=== PATIENT | male | born 1950 | race Caucasian/White ===

== ENCOUNTER 2017-05-15 06:36 | Inpatient (IN) | payer OTHER ==
--- NOTE | 2017-05-14 10:45 | Pre-op HX & Phy Repo 2 SIG ---
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 The patient developed ulcerative colitis at age 26. At age 34 he underwent proctocolectomy with Jazmin ileostomy. In 2011 he underwent surgery to convert his malfunctioning ileostomy to a Owusu type of Kock pouch continent ileostomy. He has done very well since then, but in the past year has developed progressive bulging at the stoma. He is scheduled to undergo pouch endoscopy followed by repair of parastomal hernia. MEDICATIONS: Zyrtek ALLERGIES: None. OPERATIONS: In addition to the above, he underwent open reduction and internal fixation of a right leg fracture in 2000. REVIEW OF SYSTEMS: The patient has occasional bouts of gout, treated with colchicine and he has had asthma that increases with hay fever allergies. PHYSICAL EXAMINATION: GENERAL: [place] and will be examined upon arrival and dictated separately. IMPRESSION: 1. Parastomal hernia involving Owusu type of Kock pouch continent ileostomy 2. History of ulcerative colitis. 3. Asthma. 4. Status post multiple abdominal operations. 4.1. Proctocolectomy and Jazmin ileostomy in 1984. 4.2. Owusu continent ileostomy 2011. DISCUSSION: I have had a full discussion with the patient regarding the nature of pouch endoscopy, which does not require any anesthesia or sedation, followed by surgery to repair the parastomal hernia. I have discussed the indications, alternatives, options, and risks including bleeding, infection, recurrence, possible need for mesh, additional difficulties with the pouch or stoma that could occur, etc. I will have another discussion in person and will answer any questions when the patient arrives from out of state. Danny Nettles M.D. DR: FANNY JOB#: [id number] CC: ADOLFO
[~2017-05-15] VITALS: Ht 177.8 cm; Wt 65.8 kg
--- NOTE | 2017-05-15 07:35 | Pre-Procedure Note/Attestation ---
Pre-Procedure Note/Attestation Complete Prior to Procedure Planned Procedure: not applicable Procedure Narrative: Owusu Continent Ileostomy pouch endoscopy Indications for Procedure Pre-Operative Diagnosis: Parastomal hernia of Owusu continent ileostomy Attestation I attest that I discussed the nature of the procedure; its benefits; risks and complications; and alternatives (and the risks and benefits of such alternatives ), prior to the procedure, with the patient (or the patient's legal physician relations representative). I attest that, if there was a reasonable possibility of needing a blood transfusion, the patient (or the patient's legal physician relations representative) was given the [facility] standardized written summary, pursuant to the Edvin Zofia Blood Safety Act ([place] Health and Safety Code # 1645, as amended). I attest that I re-evaluated the patient just prior to the surgery and that there has been no change in the patient's H&P, except as documented below: none ARIELA DAWSON May 15, 2017 07:35
[2017-05-15 07:36] VITALS: BP 132/76
[2017-05-15] MEDS ORDERED: ZYRTEC10 MG ORAL (07:42)
[2017-05-15] MEDS ORDERED: NS Irrig 1000ml ONE (08:00)
[2017-05-15] MEDS ORDERED: metroNIDAZOLE 500mg 100 ML IVPB ONE (08:00)
[2017-05-15] MEDS ORDERED: Midazolam 2mg/2ml Inj ONE ×2 (08:00→09:00)
[2017-05-15] MEDS ORDERED: Dexamethasone 4mg/ml vial ONE ×2 (08:00→09:00)
[2017-05-15] MEDS ORDERED: Ampicillin/Sulbactam Sod 3 GM in NS 110 ML IVPB ONE (08:00)
[2017-05-15] MEDS ORDERED: Glycopyrrolate 0.2mg/ml 1ml Vial ONE ×2 (08:00→09:00)
[2017-05-15] MEDS ORDERED: Sterile Water Irrig 1000ml IRRIG ONE (08:00)
[2017-05-15] MEDS ORDERED: Zemuron 50mg/5ml Inj IV ONE ×2 (08:00→09:00)
[2017-05-15] MEDS ORDERED: LR 1000ml ONE ×2 (08:00→09:00)
--- NOTE | 2017-05-15 08:37 | Brief Operative Note ---
Immediate Post Operative Note Operative Note Pre-op Diagnosis: Parastomal hernia of Owusu continent ileostomy Procedure: Owusu pouch endoscopy Post-op Diagnosis: partially slipped nipple valve of Owusu continent ileostomy Post-op Diagnosis: same as pre-op plus - parastomal hernia + slipped valve Findings: consistent w/pre-op dx studies Surgeon: fadumo Anesthesia: other - none Specimen: none Complications: none Condition: stable Estimated Blood Loss: none Drains: other - 28 anne to pouch Implant(s) used?: ARIELA Ryan May 15, 2017 08:37
[2017-05-15] MEDS ORDERED: Heparin Sod 1000 units/ml 10ml IV ONE (08:45)
[2017-05-15] MEDS ORDERED: Lidocaine 1% Plain 30 ml INJ ONE (08:45)
[2017-05-15] MEDS ORDERED: Ketamine 500mg Inj ONE (09:00)
[2017-05-15] MEDS ORDERED: fentaNYL 250mcg/5ml ONE (09:00)
[2017-05-15] MEDS ORDERED: Neostigmine 1mg/ml 10ml Inj ONE (09:00)
[2017-05-15] MEDS ORDERED: Succinylcholine 20mg/ml 10ml vial ONE (09:00)
[2017-05-15] MEDS ORDERED: Zolpidem 5mg tab ORAL PRN (09:15)
[2017-05-15 09:18] VITALS: BP 119/79
--- NOTE | 2017-05-15 09:36 | General Progress Note ---
Progress Note Progress Note H&P dictated. Patient told me this morning that he has been having some difficulty intubating his Owusu Continent Ileostomy as well as episodes of incontinence of stool and gas Owsuu Pouch endoscopy performed and reveals a partially slipped valve (valve desussception), in addition to the parastomal hernia. In view of this additional finding, the patient will require laparotomy and revision of his Continent Ileostomy, as well as repair of the parastomal hernia. He will require today for preparation: dual lumen PICC line, bowel prep, IV hydration, pre-op IV antibiotics started tonight and SQ heparin in AM; and continuous drainage of the Owusu pouch with an indwelling catheter to gravity drainage (already inserted). Full discussion with patient and his re these additional findings and need for more extensive surgery. ARIELA DAWSON May 15, 2017 09:36
[2017-05-15 09:49] LABS: BASOPHILS % (AUTO) 0.5 % (0.0-2.0); EOSINOPHILS % (AUTO) 4.3 % (0.0-3.0); MEAN CORPUSCULAR HEMOGLOBIN 30.8 PG (27.0-31.0); MEAN CORPUSCULAR HGB CONC 33.5 G/DL (32.0-36.0); MEAN CORPUSCULAR VOLUME 92 FL (80-99); MEAN PLATELET VOLUME 7.3 FL (6.5-10.1); MONOCYTES % (AUTO) 7.1 % (1.0-10.0); PLATELET COUNT 180 K/UL (150-450); RED BLOOD COUNT 4.76 M/UL (4.70-6.10); RED CELL DISTRIBUTION WIDTH 11.4 % (11.6-14.8); WHITE BLOOD COUNT 10.1 K/UL (4.8-10.8)
[2017-05-15 10:00] LABS: PROTHROMBIN TIME 10.7 SEC (9.30-11.50)
[2017-05-15] MEDS ORDERED: Heparin 2000 units/Ns 1000ml IV ONE (10:00)
[2017-05-15 10:04] LABS: ALANINE AMINOTRANSFERASE 13 U/L (3-41); ALBUMIN/GLOBULIN RATIO 1.7 (1.0-2.7); ANION GAP 7 (5-15); ASPARTATE AMINO TRANSFERASE 16 U/L (5-40); CALCIUM 8.9 mg/dL (8.6-10.2); CARBON DIOXIDE 30 mEQ/L (20-30); CHLORIDE 102 mEQ/L (98-107); CREATININE 0.9 mg/dL (0.7-1.2); GLOMERULAR FILTRATION RATE > 60 mL/min (>60); HEMOLYSIS 5; POTASSIUM 4.6 mEQ/L (3.4-4.9); SODIUM 139 mEQ/L (135-145); TOTAL PROTEIN 5.8 g/dL (6.6-8.7)
[2017-05-15 10:17] LABS: BILIRUBIN,DIRECT 0.3 mg/dL (0.1-0.3)
[2017-05-15 11:28] LABS: APPEARANCE,URINE CLEAR; KETONES,URINE NEGATIVE (NEGATIVE); LEUKOCYTE ESTERASE ,URINE NEGATIVE (NEGATIVE); NITRITE,URINE NEGATIVE (NEGATIVE); PH,URINE 5 (4.5-8.0); PROTEIN,URINE NEGATIVE (NEGATIVE); UROBILINOGEN,URINE NORMAL MG/DL (0.0-1.0)
[2017-05-15] MEDS: Acetaminophen 500mg (ES) tab ORAL PRN (12:20)
[2017-05-15] MEDS: Dyna-Hex 2% Top Sol 8oz TOPIC SCH (12:21)
--- NOTE | 2017-05-15 12:30 | Pre-op HX & Phy Repo 2 SIG ---
DATE OF ADMISSION: 05/15/2017 HISTORY OF PRESENT ILLNESS: The [place] now [place]. Please see previously dictated history. At this time, he describes additional symptoms regarding his Owusu type of Kock pouch continent ileostomy. He has been having some difficulty with insertion of his drainage catheter and he has also had recent episodes of incontinence of stool and gas. This is all in addition to his parastomal hernia. PHYSICAL EXAMINATION: GENERAL: The patient is well developed and well nourished, in no distress. HEENT: Within normal limits. LUNGS: Clear. HEART: Regular rhythm. BREASTS: Without masses. ABDOMEN: Soft and flat with a long midline scar and the stoma of his Owusu continent ileostomy low in the right lower quadrant. There is a moderate size 4 x 5 cm bulge just cephalad to the stoma indicating the parastomal hernia. RECTAL: Status post proctectomy. GENITALIA: Testes and scrotum within normal limits. EXTREMITIES: Without edema or varicosities. Pulses 3+ femoral to pedal bilaterally. NEUROLOGIC: Physiologic. ADDITIONAL INFORMATION: The patient underwent Owusu continent ileostomy pouch endoscopy this morning without requiring any anesthesia or sedation. The endoscopy revealed that he has a partially slipped or dessuscepted nipple valve. The pouch itself is healthy without any inflammation and is normally distensible. In addition to the parastomal hernia, the new finding indicates that the patient requires more than just repair of parastomal hernia. He will require laparotomy with revision of his Owusu continent ileostomy slipped valve as well as repair of the hernia. He will require a day in the hospital to prepare for this with insertion of a dual lumen PICC line, bowel prep, continuous drainage of his Owusu pouch, intravenous hydration during the bowel prep, preop intravenous antibiotics, and subcutaneous heparin. IMPRESSION: 1. Malfunctioning Owusu continent ileostomy with partially slipped nipple valve and parastomal hernia. 2. History of ulcerative colitis. 3. Status post multiple abdominal operations. 3.1. Proctocolectomy and Jazmin ileostomy in 1984. 3.2. Creation of Owusu continent ileostomy in 2011. DISCUSSION: I have had a full discussion with the patient and his regarding these additional findings, the need for formal laparotomy as described above. I have discussed the nature of the surgery, indications, alternatives, options, and risks including bleeding, infection, injury to adjacent structures or organs, possible need for gastrostomy if there is a prolonged mobilization of bowel or a more substantial revision, deep vein thrombosis despite prophylaxis, recurrent or new issues with the pouch or stoma or recurrence of the hernia with or without use of mesh. I have discussed with the patient the option of revising the existing valve of his pouch or creating a new valve and stoma with possible relocation of the stoma to the left lower quadrant. All questions have been answered. The patient understands and agrees to proceed. Danny Nettles M.D. DR: FANNY JOB#: [id number] CC: ADOLFO
[2017-05-15] MEDS: Neomycin Sulfate 500mg Tab ORAL SCH ×3 (12:41→21:46)
--- NOTE | 2017-05-15 12:51 | Diagnostic Imaging Report ---
Indication: oysterman venous access Findings: After the indications, procedure, risks, complications, and alternatives of the procedure were explained, written informed consent was obtained. The left upper extremity was prepped with alcohol. All elements of maximal sterile barrier technique were followed including usage of a cap, mask, sterile gown, sterile gloves, hand hygiene and a large sterile sheet. Sonographic evaluation of the upper extremity was performed demonstrating a patent and compressible basilic vein. Access was obtained under real-time ultrasound guidance and digital image was saved and archived. An .018 wire was introduced. Needle exchanged for a 5 [place] peel-away sheath. Measurements were obtained. A 5 [place] dual-lumen Power PICC line catheter was cut to 45 cm and introduced over the wire. Peel-away sheath and wire were removed.Catheter was secured to the skin using 2-0 Prolene suture. Both ports aspirate and flush easily. Fluoroscopic Images show distal tip in the superior vena cava. Total fluoroscopic time 0.3 minutes. Impression: Successful placement of an upper extremity PICC line catheter
[2017-05-15 12:55] VITALS: BP 106/65
[2017-05-15 16:00] VITALS: BP 105/63
--- NOTE | 2017-05-15 17:30 | Procedure Note ---
DATE OF PROCEDURE: 05/15/2017 ENDOSCOPY PROCEDURE REPORT TYPE OF ENDOSCOPY: Owusu continent ileostomy pouch endoscopy. PRE-ENDOSCOPY DIAGNOSES: 1. Malfunctioning Owusu continent ileostomy with difficulty with intubation and incontinence as well as parastomal hernia. 2. History of ulcerative colitis. 3. Status post multiple abdominal operations. 3.1. Proctocolectomy and Jazmin ileostomy in 1984. 3.2. Owusu continent ileostomy in 2011. POST-ENDOSCOPY DIAGNOSIS: 1. Malfunctioning Owusu continent ileostomy with difficulty with intubation and incontinence as well as parastomal hernia. 2. History of ulcerative colitis. 3. Status post multiple abdominal operations. 3.1. Proctocolectomy and Jazmin ileostomy in 1984. 3.2. Owusu continent ileostomy in 2011. ENDOSCOPY PERFORMED: Owusu pouch endoscopy. ENDOSCOPIST: Danny Nettles M.D. ANESTHESIA: None. SEDATION: None. FINDINGS: A partially slipped nipple valve of the Owusu pouch with normal pouch mucosa showing no signs of inflammation, and there are angulations of the access segment. There is also a parastomal hernia of moderate size. DESCRIPTION OF PROCEDURE: The patient was positioned supine in the GI lab without any anesthesia or sedation given or required. Using a GIF-P140 endoscope, I entered the stoma, but there was severe angulation at approximately 8 cm in depth. I removed the scope and inserted a 28-[place] Sarmiento catheter into the pouch to decompress it without any significant difficulty. I had continuing difficulties with the endoscope, but finally was able to enter the pouch. The pouch was distensible and the mucosa completely normal. Retroflexed views revealed that the nipple valve was short and stubby instead of well formed and 5 cm in length. This explains the incontinence and the angulations of the access segment explaining difficulty with intubation. Withdrawal views confirmed the above findings. The distance from the stoma orifice to the tip of the valve was elongated at approximately 10 to 11 cm instead of what would be anticipated as 7 to 8 cm. The patient tolerated the endoscopy well. I have discussed with the patient the additional findings that will require more extensive surgery than simply repair of his parastomal hernia including laparotomy and revision of his Owusu pouch slipped valve. The patient will be admitted now and prepared for surgery tomorrow. Don Regina Nettles DR: LIBERTY JOB#: [id number] CC: ADOLFO
[2017-05-15] MEDS: D5 1/2NS w/KCl 20mEq 1,000 ML IV SCH (18:59)
[2017-05-15 19:58] VITALS: BP 120/75
[2017-05-16] VITALS (10 sets, daily range): BP systolic 82–127; BP diastolic 45–80
[2017-05-16] MEDS: metroNIDAZOLE 500mg 100 ML IV SCH ×5 (00:23→23:40)
[2017-05-16] MEDS: Ampicillin/Sulbactam Sod 3 GM in NS 110 ML IV SCH ×5 (00:23→23:40)
[2017-05-16] MEDS: D5 1/2NS w/KCl 20mEq 1,000 ML IV SCH ×2 (05:29→14:00)
[2017-05-16] MEDS ORDERED: Heparin 5000 units/ml inj SUBQ ONE (07:00)
--- NOTE | 2017-05-16 07:58 | Pre-Procedure Note/Attestation ---
Pre-Procedure Note/Attestation Complete Prior to Procedure Planned Procedure: not applicable Procedure Narrative: laparotomy revision Owusu Continent Ileostomy, repair parastomal hernia, possible gastrostomy Indications for Procedure Pre-Operative Diagnosis: Malfunctioning Owusu Continent Ileostomy with slipped valve and parastomal hernia Attestation I attest that I discussed the nature of the procedure; its benefits; risks and complications; and alternatives (and the risks and benefits of such alternatives ), prior to the procedure, with the patient (or the patient's legal development representative). I attest that, if there was a reasonable possibility of needing a blood transfusion, the patient (or the patient's legal development representative) was given the [place] [facility] standardized written summary, pursuant to the Edvin Zofia Blood Safety Act ([place] Health and Safety Code # 1645, as amended). I attest that I re-evaluated the patient just prior to the surgery and that there has been no change in the patient's H&P, except as documented below:none ARIELA DAWSON May 16, 2017 07:57
[2017-05-16] MEDS ORDERED: Lidocaine 1% MPF 10mg/ml 5ml ONE (08:00)
[2017-05-16] MEDS ORDERED: Bacitracin 50000 Units Vial ONE (08:10)
[2017-05-16] MEDS: Dyna-Hex 2% Top Sol 8oz TOPIC SCH (09:00)
[2017-05-16] MEDS ORDERED: NS Irrig 1000ml IRRIG ONE (09:30)
[2017-05-16] MEDS ORDERED: LR 1000ml 1,000 ML IVLG SCH (09:41)
[2017-05-16] MEDS ORDERED: Meperidine 25mg/0.5ml Inj (FOR RIGORS ONLY) IV PRN (09:45)
[2017-05-16] MEDS ORDERED: Atropine Inj 1mg/10ml Syr IV PRN (09:45)
[2017-05-16] MEDS ORDERED: fentaNYL 100 mcg/2 mL IV PRN (09:45)
[2017-05-16] MEDS ORDERED: Midazolam 2mg/2ml Inj IVP PRN (09:45)
[2017-05-16] MEDS ORDERED: Norco 5mg/325mg tab ORAL PRN (09:45)
[2017-05-16] MEDS ORDERED: Norco 7.5mg/325mg tab ORAL PRN (09:45)
[2017-05-16] MEDS ORDERED: Ketorolac 60mg Inj IV PRN (09:45)
[2017-05-16] MEDS ORDERED: oxyCODONE HCL/Acetaminophen 5/325mg ORAL PRN (09:45)
[2017-05-16] MEDS ORDERED: Hydromorphone 0.5mg/0.5ml inj IVP PRN (09:45)
[2017-05-16] MEDS ORDERED: LORazepam Inj 2mg/ml 1ml IV PRN (09:45)
[2017-05-16] MEDS ORDERED: Ketorolac 30mg Inj IV PRN (09:45)
[2017-05-16] MEDS ORDERED: DiphenhydrAMINE 50mg/ml Inj IVP PRN ×2 (09:45→14:00)
[2017-05-16] MEDS ORDERED: Metoclopramide 10mg/2ml Inj IVP PRN (09:45)
--- NOTE | 2017-05-16 09:45 | Anethesia Preoperative Eval ---
Anesthesia Pre-op PMH/ROS General Date of Evaluation: May 16, 2017 Time of Evaluation: 08:51 Anesthesiologist: Juan J ASA Score: ASA 3 Mallampati Score Class I : Soft palate, uvula, fauces, pillars visible Class II: Soft palate, uvula, fauces visible Class III: Soft palate, base of uvula visible Class IV: Only hard plate visible Mallampati Classification: Class II Surgeon: Yoon Diagnosis: Malfunctioning Barnetts Pouch Surgical Procedure: Revision Malfunctioning Pouch Anesthesia History: none Family History: no anesthesia problems Allergies: Coded Allergies: No Known Allergies (Unverified , 04/08/12) Medications: see eMAR Past Medical History Pulmonary: Reports: asthma Gastrointestinal/Genitourinary: Reports: other - Colitis, Malfunctioning Barnetts Pouch PSxH Narrative: Barnetts Pouch 1985 Anesthesia Pre-op Phys. Exam Physician Exam Last Vital Signs Date Time Temp Pulse Resp B/P Pulse Ox O2 Delivery O2 Flow Rate FiO2 05/16/17 04:49 97.7 57 20 126/74 99 Room Air Constitutional: NAD Neurologic: CN 2-12 intact Cardiovascular: RRR Respiratory: CTA Gastrointestinal: S/NT/ND Airway Exam Mallampati Score: Class II MO: full ROM: full Teeth: intact Anesthesia Pre-op A/P Labs Hematology Test 05/15/17 09:45 White Blood Count 10.1 K/UL (4.8-10.8) Red Blood Count 4.76 M/UL (4.70-6.10) Hemoglobin 14.7 G/DL (14.2-18.0) Hematocrit 43.8 % (42.0-52.0) Mean Corpuscular Volume 92 FL (80-99) Mean Corpuscular Hemoglobin 30.8 PG (27.0-31.0) Mean Corpuscular Hemoglobin Concent 33.5 G/DL (32.0-36.0) Red Cell Distribution Width 11.4 % (11.6-14.8) L Platelet Count 180 K/UL (150-450) Mean Platelet Volume 7.3 FL (6.5-10.1) Neutrophils (%) (Auto) 74.0 % (45.0-75.0) Lymphocytes (%) (Auto) 14.0 % (20.0-45.0) L Monocytes (%) (Auto) 7.1 % (1.0-10.0) Eosinophils (%) (Auto) 4.3 % (0.0-3.0) H Basophils (%) (Auto) 0.5 % (0.0-2.0) Coagulation Test 05/15/17 09:45 Prothrombin Time 10.7 SEC (9.30-11.50) Prothromb Time International Ratio 1.0 (0.9-1.1) Activated Partial Thromboplast Time 30 SEC (23-33) Chemistry Test 05/15/17 09:45 Sodium Level 139 mEQ/L (135-145) Potassium Level 4.6 mEQ/L (3.4-4.9) Chloride Level 102 mEQ/L (98-107) Carbon Dioxide Level 30 mEQ/L (20-30) Anion Gap 7 (5-15) Blood Urea Nitrogen 9 mg/dL (7-23) Creatinine 0.9 mg/dL (0.7-1.2) Estimat Glomerular Filtration Rate > 60 mL/min (>60) Glucose Level 91 mg/dL (74-106) Calcium Level 8.9 mg/dL (8.6-10.2) Total Bilirubin 1.9 mg/dL (0.0-1.2) H Direct Bilirubin 0.3 mg/dL (0.1-0.3) Aspartate Amino Transf (AST/SGOT) 16 U/L (5-40) Alanine Aminotransferase (ALT/SGPT) 13 U/L (3-41) Alkaline Phosphatase 78 U/L (40-129) Total Protein 5.8 g/dL (6.6-8.7) L Albumin 3.7 g/dL (3.5-5.2) Globulin 2.1 g/dL Albumin/Globulin Ratio 1.7 (1.0-2.7) Risk Assessment & Plan Assessment: ASA 3 Plan: GA, BIS, Glidescope Status Change Before Surgery: No Pre-Antibiotics Drug: On Floor Magno Arita MD May 16, 2017 09:45
--- NOTE | 2017-05-16 09:46 | Immediate Post-Op Evaluation ---
Immediate Post-Op Evalulation Immediate Post-Op Evalulation Procedure: Revision Malfunctioning Pouch Date of Evaluation: May 16, 2017 Time of Evaluation: 14:10 IV Fluids: 1200 LR Blood Products: 0 Estimated Blood Loss: 75 Urinary Output: 200 Blood Pressure Systolic: 91 Blood Pressure Diastolic: 54 Pulse Rate: 72 Respiratory Rate: 16 O2 Sat by Pulse Oximetry: 98 Temperature (Fahrenheit): 97.5 Pain Score (1-10): 2 Nausea: No Vomiting: No Complications 0 Patient Status: awake, reacts, patent, extubated, none Hydration Status: adequate Dru mg Flagyl, 3.375 Grams Zosyn Given Within 1 Hr of Incision: Yes Time Given: 12:30 Magno Arita MD May 16, 2017 09:46
--- NOTE | 2017-05-16 09:51 | 48 Hour Post Anesthesia Eval ---
Post Anesthesia Evaluation Procedure: Revision Malfunctioning Pouch Date of Evaluation: May 16, 2017 Time of Evaluation: 16:32 Blood Pressure Systolic: 112 0: 76 Pulse Rate: 74 Respiratory Rate: 18 Temperature (Fahrenheit): 98.2 O2 Sat by Pulse Oximetry: 99 Airway: patent Nausea: No Vomiting: No Pain Intensity: 2 Hydration Status: adequate Cardiopulmonary Status: Stable Mental Status/LOC: patient returned to baseline Follow-up Care/Observations: 0 Post-Anesthesia Complications: 0 Follow-up care needed: N/A Magno Arita MD May 16, 2017 09:51
[2017-05-16] MEDS ORDERED: Betadine 4oz Bottle TOPIC ONE (10:00)
[2017-05-16] MEDS ORDERED: Acetaminophen (Non formulary) 100 ML IV ONE ×2 (10:45)
[2017-05-16] MEDS ORDERED: Acetaminophen (Non formulary) 1,000 MG/100 ML ML IV ONE (11:00)
[2017-05-16] MEDS ORDERED: Ampicillin/Sulbactam Sod 3 GM in NS 110 ML IV SCH (12:00)
[2017-05-16] MEDS ORDERED: metroNIDAZOLE 500mg 100 ML IV SCH (12:00)
[2017-05-16] MEDS ORDERED: Morphine Sulfate 2mg/ml Inj IVP PRN (14:00)
[2017-05-16] MEDS ORDERED: LORazepam 1mg tab SL PRN ×2 (14:00)
[2017-05-16] MEDS ORDERED: Morphine Sulfate 4mg/ml Inj SUBQ PRN (14:00)
[2017-05-16] MEDS ORDERED: Rate Change PCA 1 Each MISC PRN (14:00)
[2017-05-16] MEDS ORDERED: Naloxone 0.4mg/ml Inj IVP PRN (14:00)
[2017-05-16] MEDS ORDERED: PCA Education Pamphlet MISC ONE (14:00)
--- NOTE | 2017-05-16 14:01 | Brief Operative Note ---
Immediate Post Operative Note Operative Note Pre-op Diagnosis: Malfunctioning Owusu Continent Ileostomy with slipped valve and parastomal hernia Procedure: Laparotomy with revision of Owusu pouch and relocation of stoma to LLQ, repair parastomal hernia RLQ, gastrostomy Post-op Diagnosis: same Post-op Diagnosis: same as pre-op Findings: consistent w/pre-op dx studies Surgeon: fadumo [employer] Consultant: reyna Anesthesiologist: donis Anesthesia: general Specimen: yes - Owusu pouch stoma, bowel trimmings Complications: none Condition: stable Fluids: see anesthesia record Estimated Blood Loss: volume - 75cc Drains: other - 28 pouch, 18 gastrostomy Implant(s) used?: No ARIELA DAWSON May 16, 2017 14:01
[2017-05-16] MEDS: PCA Morphine 1mg/ml 30 ML IV PRN ×2 (14:23→22:38)
[2017-05-16] MEDS: D5 1/4NS w/KCl 20mEq 1,000 ML IV SCH (16:24)
[2017-05-16] MEDS: PCA shift volume MISC SCH (19:00)
[2017-05-17] VITALS: BP 102/57
[2017-05-17] MEDS: D5 1/4NS w/KCl 20mEq 1,000 ML IV SCH (01:00)
--- NOTE | 2017-05-17 03:47 | Operative Note - Dictated ---
DATE OF OPERATION: 05/16/2017 SURGEON: Danny Nettles M.D. PAPER MACHINE BACKTENDER SURGEON: Prosper Ambriz M.D. ANESTHESIOLOGIST: Magno Arita M.D. TYPE OF ANESTHESIA: General endotracheal. PREOPERATIVE DIAGNOSES: 1. 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 2. History of ulcerative colitis. 3. Status post multiple abdominal operations. 3.1. Proctocolectomy and Jazmin ileostomy in 1984. 3.2. Creation of Owusu continent ileostomy in 2011. POSTOPERATIVE DIAGNOSES: 1. 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 2. History of ulcerative colitis. 3. Status post multiple abdominal operations. 3.1. Proctocolectomy and Jazmin ileostomy in 1984. 3.2. Creation of Owusu continent ileostomy in 2011. OPERATION PERFORMED: Laparotomy with complex revision of Owusu continent ileostomy including creation of new valve and relocation of stoma to the left lower quadrant; repair of right lower quadrant hernia; catheter gastrostomy. DESCRIPTION OF PROCEDURE: The patient was taken to the operating room and under general endotracheal anesthesia with sequential compression device stockings and Sarmiento catheter in place, having received preoperative intravenous antibiotics and subcutaneous heparin, the patient was prepped and draped in the usual fashion. Previous midline incision was reopened from umbilicus to pubis and ultimately extended into the epigastrium. Initially, the stoma in the right lower quadrant was sealed with a Tegaderm. The patient had diffuse adhesions in the abdominal cavity and the pouch itself was adherent to the bladder. The bowel loops and the pouch were completely mobilized out of the pelvis protecting bladder and ureters. The access segment was seen to be obviously redundant. I tried to insert a 28-[place] Sarmiento catheter through the stoma into the pouch, but it would not enter the pouch. I took down the stoma with a transversely oriented elliptical incision bringing it into the abdominal cavity. Even while placing the access segment on stretch, the catheter would not enter. Between stay sutures of 3-0 silk, I created a pouch enterotomy with cautery. It was clear that the nipple valve had dessuscepted and I was finally able to locate it, grasped with Yisel clamps and reformed it measuring 6.0 cm. There was still difficulty inserting the catheter because there was a valve tip stenosis. I divided this with a MARITO 55 stapling device and then the catheter entered readily. I placed rows of evelyn away from the mesentery on the valve segment using the PI 55 stapling device with 4.8 mm evelyn. After proper fixation as I tried to manipulate the catheter in, it went straight in. Now, I closed the pouch enterotomy with continuous full-thickness 2-0 chromic locking suture and then distended the pouch with 400 mL of saline. I removed the catheter and the pouch was continent, but the catheter could not be reintroduced. I took out the chromic and reopened the enterotomy and saw that the nipple valve had already partially dessuscepted despite attempts at stabilization. It was clear that this could no longer be utilized. The mesentery to the access segment and stoma was divided between clamps ligating with 2-0 and 3-0 silk using the linear stapler 35 with green cartridge and stapled across the access segment flush with the pouch and excised the old stoma and access segment. There was good hemostasis along the staple line. I then dissected free more of the afferent bowel and it was clear that a new valve and stoma could be created with an end-to-side anastomosis to the pouch, but the blood supply would point to the left lower quadrant and I would have to relocate the stoma. I divided the bowel proximally with the automatic pursestring device, distally with the linear stapler 30. Now, using a CEEA 25, an end-to-side anastomosis to the apex of the pouch was created and 2-0 silk sutures placed between access segment and pouch. The peritoneum was stripped on each side of the valve segment mesentery and the valve segment had been measured 12 cm and then the serosa scarified with cautery. With gradual intussusception, a 6.0 cm long nipple valve was created. Three rows of evelyn were applied using the PI 55 stapling device with 4.8 mm evelyn, avoiding the mesentery. A fourth application of the stapling device was used to staple the valve to the anterior pouch wall. Then, additional 3-0 silk sutures were taken between the access segment and the pouch. The abdominal wall thickness measured at 3 cm. The appropriate length access segment was measured and marked and the bowel divided proximally with the linear stapler 30 and distally left open to become the new stoma. The mesentery was divided ligating with 3-0 silk. Now the two stapled ends of bowel were brought [id number], and using the MARITO-55, a [id number] functional end-to-end stapled anastomosis was created with good hemostasis along the staple line and the enterotomy closed with the linear stapler 60, green cartridge. A 3-0 silk placed at the apex and the small mesenteric defect closed with 3-0 silk suture. Now the pouch enterotomy was closed with continuous full-thickness 2-0 chromic locking suture followed by imbricating 3-0 silk sutures. The 28-[place] Sarmiento readily went through into the pouch and the afferent bowel was manually occluded. The pouch was distended with 400 mL of saline and there was no sign of extravasation. The catheter was removed and the pouch was completely continent. The catheter was reintroduced and the pouch decompressed. At the prior stoma site in the right lower quadrant, the incision was extended to visualize the fascial defect. The fascia was closed with inverted interrupted #0 Prolene [id number] sutures. Betadine-soaked sponge had been placed in the stoma and antibiotic-soaked sponges had been used to protect the abdominal wall and the incision. Now at an appropriate location low in the left lower quadrant, a 2.5 cm narrow ellipse of skin was excised in transverse orientation, and with a cruciate incision in the fascia, a two fingerbreadth abdominal wall hiatus was created. The posterior pouch was sutured to the peritoneum with interrupted 3-0 Vicryl and then the access segment and the stoma brought through the abdominal wall. The redundant access segment was excised and the stoma primarily matured with continuous 2-0 chromic locking sutures starting at the 3 and 9 o'clock positions. A very satisfactory stoma was achieved. The 28-[place] Sarmiento catheter was placed into the pouch and marked at the level of the stoma with 3-0 silk and then sutured to the skin with two sutures of 2-0 silk. It was flushed and connected to a gravity drainage bag. The pelvis was inspected and hemostasis was secure. The pouch lay in the pelvis with bowel loops replaced anatomically. In view of all the dissection and prolonged operation, I felt that decompression with a catheter gastrostomy was indicated. Prior gastrostomy site was taken down and through a stab incision in the left upper quadrant, an 18-[place] Sarmiento catheter was brought through the abdominal wall and placed into the greater curve, anterior wall, body of the stomach between two concentric 2-0 chromic pursestring sutures with the balloon inflated and positioned in the fundus and the stomach then sutured to the anterior abdominal wall with multiple interrupted 3-0 silk sutures. The catheter was sutured to the skin with a 2-0 silk skin suture and then it was flushed and connected to a gravity drainage bag. Gloves were changed at appropriate intervals throughout the procedure. After ascertaining that hemostasis was secure, the incision was closed in one layer with continuous #1 Prolene inverting the knots. Subcutaneous tissues again irrigated with antibiotic solution at the primary incision and the right lower quadrant incision. both incisions were closed with evelyn. Dry sterile dressings were applied. Final sponge and needle counts were correct. The patient tolerated the procedure well and left the operating room in good condition. Danny Nettles M.D. DR: MICHEAL JOB#: [id number] CC: ADOLFO
[2017-05-17] MEDS: Ampicillin/Sulbactam Sod 3 GM in NS 110 ML IV SCH ×4 (05:02→23:21)
[2017-05-17] MEDS: metroNIDAZOLE 500mg 100 ML IV SCH ×4 (05:02→23:21)
[2017-05-17 05:59] VITALS: BP_SYST 95; BP_SYST 98; BP_DIAS 61
[2017-05-17 06:44] LABS: ANION GAP 8 (5-15); CALCIUM 8.4 mg/dL (8.6-10.2); CARBON DIOXIDE 28 mEQ/L (20-30); CHLORIDE 105 mEQ/L (98-107); GLOMERULAR FILTRATION RATE > 60 mL/min (>60); HEMOLYSIS 3; POTASSIUM 5.2 mEQ/L (3.4-4.9); SODIUM 141 mEQ/L (135-145)
[2017-05-17 06:59] LABS: BASOPHILS % (AUTO) 0.2 % (0.0-2.0); EOSINOPHILS % (AUTO) 0.5 % (0.0-3.0); LYMPHOCYTES % (AUTO) 7.5 % (20.0-45.0); MEAN CORPUSCULAR HEMOGLOBIN 32.4 PG (27.0-31.0); MEAN CORPUSCULAR VOLUME 93 FL (80-99); MEAN PLATELET VOLUME 7.7 FL (6.5-10.1); MONOCYTES % (AUTO) 8.1 % (1.0-10.0); NEUTROPHILS % (AUTO) 83.8 % (45.0-75.0); PLATELET COUNT 168 K/UL (150-450); RED BLOOD COUNT 4.17 M/UL (4.70-6.10); RED CELL DISTRIBUTION WIDTH 11.4 % (11.6-14.8); WHITE BLOOD COUNT 13.3 K/UL (4.8-10.8)
[2017-05-17] MEDS: PCA shift volume MISC SCH ×2 (07:05→19:13)
[2017-05-17 08:00] VITALS: BP 98/52
[2017-05-17] MEDS: PCA Morphine 1mg/ml 30 ML IV PRN (08:47)
[2017-05-17] MEDS: Dyna-Hex 2% Top Sol 8oz TOPIC SCH (09:26)
--- NOTE | 2017-05-17 09:53 | General Progress Note ---
Progress Note Progress Note AVSS Comfortable with MS-DOCUMENT CLERK. Chest clear, Cor reg rhythm, Abdomen mildly distended, soft, incisions clean, stoma pink in LLQ Urine 500cc/12 hrs overnite Gastrostomy 40 bilious BCIR ileo 120 serosang WBC 13,300 Hgb 13.5 K 5.2 BUN 13 Cr 1.0 Imp. Stable with ileus Plan: Mobilize change IV fluids - no KCL f/u labs with TP/alb (admission albumin low normal - may benefit from TPN ARIELA DAWSON May 17, 2017 09:53
[2017-05-17] MEDS: D5 1/4NS 1000ml 1,000 ML IV SCH ×2 (09:59→20:42)
[2017-05-17] MEDS ORDERED: Naloxone 0.4mg/ml Inj IVP PRN (10:00)
[2017-05-17] MEDS ORDERED: PCA Morphine 1mg/ml 30 ML IV PRN (10:00)
[2017-05-17] MEDS ORDERED: Rate Change PCA 1 Each MISC PRN (10:00)
[2017-05-17] MEDS ORDERED: Morphine Sulfate 4mg/ml Inj SUBQ PRN (10:00)
[2017-05-17] MEDS ORDERED: DiphenhydrAMINE 50mg/ml Inj IVP PRN (10:00)
[2017-05-17] MEDS ORDERED: Morphine Sulfate 2mg/ml Inj IVP PRN (10:00)
[2017-05-17 12:37] VITALS: BP 103/55
[2017-05-17] MEDS: Acetaminophen 650mg/20.3ml GT PRN ×2 (14:10→18:03)
[2017-05-17 16:00] VITALS: BP 105/58
[2017-05-17] MEDS ORDERED: Tubing IV Secondary IV ONE (17:25)
[2017-05-17] MEDS ORDERED: NS 550ML IV ONE (17:25)
[2017-05-17] MEDS: Metoclopramide 10mg/2ml Inj IVP PRN ×2 (18:02→23:44)
[2017-05-17 20:00] VITALS: BP 116/68
[2017-05-18] VITALS (7 sets, daily range): BP systolic 103–142; BP diastolic 65–85
[2017-05-18] MEDS: Acetaminophen 650mg/20.3ml GT PRN (03:06)
[2017-05-18] MEDS: Metoclopramide 10mg/2ml Inj IVP PRN (05:55)
[2017-05-18] MEDS: metroNIDAZOLE 500mg 100 ML IV SCH ×3 (05:55→18:18)
[2017-05-18] MEDS: Ampicillin/Sulbactam Sod 3 GM in NS 110 ML IV SCH ×3 (05:56→18:19)
[2017-05-18 06:20] LABS: BASOPHILS % (AUTO) 0.4 % (0.0-2.0); EOSINOPHILS % (AUTO) 2.8 % (0.0-3.0); LYMPHOCYTES % (AUTO) 11.3 % (20.0-45.0); MEAN CORPUSCULAR HEMOGLOBIN 31.8 PG (27.0-31.0); MEAN CORPUSCULAR HGB CONC 34.6 G/DL (32.0-36.0); MEAN CORPUSCULAR VOLUME 92 FL (80-99); MEAN PLATELET VOLUME 7.6 FL (6.5-10.1); MONOCYTES % (AUTO) 8.4 % (1.0-10.0); NEUTROPHILS % (AUTO) 77.1 % (45.0-75.0); PLATELET COUNT 144 K/UL (150-450); RED CELL DISTRIBUTION WIDTH 11.3 % (11.6-14.8); WHITE BLOOD COUNT 9.7 K/UL (4.8-10.8)
[2017-05-18] MEDS: D5 1/4NS 1000ml 1,000 ML IV SCH (06:26)
[2017-05-18 06:35] LABS: ALANINE AMINOTRANSFERASE 11 U/L (3-41); ALBUMIN/GLOBULIN RATIO 1.5 (1.0-2.7); ANION GAP 6 (5-15); ASPARTATE AMINO TRANSFERASE 19 U/L (5-40); CARBON DIOXIDE 29 mEQ/L (20-30); CHLORIDE 101 mEQ/L (98-107); CREATININE 0.8 mg/dL (0.7-1.2); GLOMERULAR FILTRATION RATE > 60 mL/min (>60); HEMOLYSIS 5; POTASSIUM 3.5 mEQ/L (3.4-4.9); SODIUM 136 mEQ/L (135-145); TOTAL PROTEIN 4.6 g/dL (6.6-8.7)
[2017-05-18 06:48] LABS: BILIRUBIN,DIRECT 0.3 mg/dL (0.1-0.3)
[2017-05-18] MEDS: PCA shift volume MISC SCH ×2 (07:14→19:20)
[2017-05-18] MEDS: Dyna-Hex 2% Top Sol 8oz TOPIC SCH (08:46)
[2017-05-18] MEDS ORDERED: Naloxone 0.4mg/ml Inj IVP PRN (08:58)
[2017-05-18] MEDS ORDERED: Rate Change PCA 1 Each MISC PRN (09:00)
[2017-05-18] MEDS: Metoclopramide 10mg/2ml Inj IVP SCH ×3 (09:07→21:33)
--- NOTE | 2017-05-18 09:15 | General Progress Note ---
Progress Note Progress Note AVSS. Having nausea despite Zofran and Reglan prn. Also headache, but better since basal infusion of NURSE HEALTHCARE MANAGER stopped Abdomen distended but soft, incisions clean, stoma pink Urine 850/24 hours, but 600 overnight and clear dilute urine now Gastrostomy 165 BCIR ileo 15 enteric WBC down 9700 Hgb 12.4 K 3.5 Albumin 2.8 Imp. Ileus and persistent nausea Malnutrition Plan: NPO Start TPN Give Reglan q6h instead of PRN, continue prn ARIELA Hart May 18, 2017 09:15
[2017-05-18] MEDS ORDERED: Morphine Sulfate 4mg/ml Inj SUBQ PRN (10:00)
[2017-05-18] MEDS ORDERED: Morphine Sulfate 2mg/ml Inj IVP PRN (10:00)
[2017-05-18] MEDS ORDERED: PCA Morphine 1mg/ml 30 ML IV PRN (10:00)
[2017-05-18] MEDS ORDERED: DiphenhydrAMINE 50mg/ml Inj IVP PRN (10:00)
[2017-05-18] MEDS ORDERED: Dextrose 10% 1,000 ML IV PRN (10:30)
[2017-05-18] MEDS ORDERED: D5 1/4NS w/KCl 20mEq 1,000 ML IV SCH ×2 (11:00→21:00)
[2017-05-18] MEDS: Phytonadione 10 mg/mL 1ml amp SUBQ SCH (11:28)
[2017-05-18] MEDS: Acetaminophen 500mg (ES) tab ORAL PRN (20:38)
[2017-05-18] MEDS ORDERED: Fat Emulsion Iv 20% 250 ML IV SCH (21:00)
[2017-05-18] MEDS: Fat Emulsion Iv 20% 240 ML in Tpn 1,680 ML IV SCH (21:46)
[2017-05-19] VITALS (7 sets, daily range): BP systolic 119–142; BP diastolic 76–82
[2017-05-19] MEDS: metroNIDAZOLE 500mg 100 ML IV SCH ×4 (00:10→18:31)
[2017-05-19] MEDS: Ampicillin/Sulbactam Sod 3 GM in NS 110 ML IV SCH ×4 (00:10→18:31)
[2017-05-19] MEDS: NovoLOG Insulin Flexpen SUBQ SCH ×4 (00:18→18:39)
[2017-05-19] MEDS: Metoclopramide 10mg/2ml Inj IVP SCH ×4 (03:32→20:56)
[2017-05-19 04:55] LABS: BASOPHILS % (AUTO) 0.3 % (0.0-2.0); EOSINOPHILS % (AUTO) 2.9 % (0.0-3.0); LYMPHOCYTES % (AUTO) 12.2 % (20.0-45.0); MEAN CORPUSCULAR HEMOGLOBIN 32.3 PG (27.0-31.0); MEAN CORPUSCULAR HGB CONC 35.4 G/DL (32.0-36.0); MEAN CORPUSCULAR VOLUME 91 FL (80-99); MEAN PLATELET VOLUME 7.2 FL (6.5-10.1); MONOCYTES % (AUTO) 7.1 % (1.0-10.0); NEUTROPHILS % (AUTO) 77.5 % (45.0-75.0); PLATELET COUNT 156 K/UL (150-450); RED BLOOD COUNT 4.05 M/UL (4.70-6.10); WHITE BLOOD COUNT 8.8 K/UL (4.8-10.8)
[2017-05-19 05:05] LABS: ANION GAP 7 (5-15); CALCIUM 8.3 mg/dL (8.6-10.2); CARBON DIOXIDE 32 mEQ/L (20-30); CHLORIDE 100 mEQ/L (98-107); CREATININE 0.7 mg/dL (0.7-1.2); GLOMERULAR FILTRATION RATE > 60 mL/min (>60); HEMOLYSIS 3; MAGNESIUM 1.3 mg/dL (1.7-2.5); PHOSPHORUS 2.3 mg/dL (2.5-4.8); POTASSIUM 3.3 mEQ/L (3.4-4.9); SODIUM 139 mEQ/L (135-145)
[2017-05-19] MEDS: PCA shift volume MISC SCH ×2 (07:07→19:03)
[2017-05-19] MEDS: Dyna-Hex 2% Top Sol 8oz TOPIC SCH (08:46)
[2017-05-19] MEDS: PCA Morphine 1mg/ml 30 ML IV PRN (08:51)
--- NOTE | 2017-05-19 08:52 | General Progress Note ---
Progress Note Progress Note AVSS Ambulated once in hallways. Nausea much better - still with significant incisional pain Abdomen soft, slight distention, healing nicely Urine 3750 Gastrostomy 110 BCIR ileo 80 enteric WBC 8800 Hgb 13.1 K 3.3 Mg 1.3 Imp. Ileus Plan: Continue npo and TPN Increase KCL; give MgSO4 f/u labs add Toradol prn continue ARIELA Padron May 19, 2017 08:52
[2017-05-19] MEDS ORDERED: Ketorolac 30mg Inj IV STA (08:59)
[2017-05-19] MEDS ORDERED: Rate Change PCA 1 Each MISC PRN (09:00)
[2017-05-19] MEDS ORDERED: Morphine Sulfate 2mg/ml Inj IVP PRN (09:00)
[2017-05-19] MEDS ORDERED: DiphenhydrAMINE 50mg/ml Inj IVP PRN (09:00)
[2017-05-19] MEDS ORDERED: Naloxone 0.4mg/ml Inj IVP PRN (09:00)
[2017-05-19] MEDS ORDERED: Morphine Sulfate 4mg/ml Inj SUBQ PRN (09:00)
[2017-05-19] MEDS: Potassium Chloride 40 MEQ in D5 1/4NS 1000ml 1,000 ML IV SCH (09:43)
[2017-05-19] MEDS ORDERED: Magnesium Sulfate 4,000 MG in NS 275 ML IV ONE (11:00)
[2017-05-19] MEDS ORDERED: Fluconazole 100mg tab ORAL ONE (11:00)
[2017-05-19] MEDS: Acetaminophen 500mg (ES) tab ORAL PRN (16:36)
[2017-05-19] MEDS: Fat Emulsion Iv 20% 240 ML in Tpn 1,680 ML IV SCH (20:57)
[2017-05-19] MEDS: Acetaminophen 650mg/20.3ml GT PRN (21:02)
[2017-05-19] MEDS: Ketorolac 30mg Inj IV PRN (22:17)
[2017-05-20] MEDS: Ampicillin/Sulbactam Sod 3 GM in NS 110 ML IV SCH ×5 (00:01→23:32)
[2017-05-20 00:11] VITALS: BP 134/76
[2017-05-20] MEDS: NovoLOG Insulin Flexpen SUBQ SCH ×5 (00:11→23:33)
[2017-05-20] MEDS: Metoclopramide 10mg/2ml Inj IVP SCH ×4 (03:34→21:12)
[2017-05-20 04:00] VITALS: BP 130/82
[2017-05-20 04:05] LABS: BASOPHILS % (AUTO) 0.6 % (0.0-2.0); EOSINOPHILS % (AUTO) 7.9 % (0.0-3.0); LYMPHOCYTES % (AUTO) 16.7 % (20.0-45.0); MEAN CORPUSCULAR HEMOGLOBIN 32.9 PG (27.0-31.0); MEAN CORPUSCULAR HGB CONC 36.3 G/DL (32.0-36.0); MEAN CORPUSCULAR VOLUME 90 FL (80-99); MEAN PLATELET VOLUME 6.8 FL (6.5-10.1); MONOCYTES % (AUTO) 6.3 % (1.0-10.0); NEUTROPHILS % (AUTO) 68.7 % (45.0-75.0); PLATELET COUNT 158 K/UL (150-450); RED BLOOD COUNT 3.85 M/UL (4.70-6.10); RED CELL DISTRIBUTION WIDTH 10.8 % (11.6-14.8); WHITE BLOOD COUNT 7.3 K/UL (4.8-10.8)
[2017-05-20 04:32] LABS: ANION GAP 7 (5-15); CALCIUM 8.4 mg/dL (8.6-10.2); CARBON DIOXIDE 33 mEQ/L (20-30); CHLORIDE 101 mEQ/L (98-107); CREATININE 0.6 mg/dL (0.7-1.2); GLOMERULAR FILTRATION RATE > 60 mL/min (>60); HEMOLYSIS 7; MAGNESIUM 1.5 mg/dL (1.7-2.5); POTASSIUM 3.3 mEQ/L (3.4-4.9); SODIUM 141 mEQ/L (135-145)
[2017-05-20] MEDS: Ketorolac 30mg Inj IV PRN (06:07)
[2017-05-20] MEDS: metroNIDAZOLE 500mg 100 ML IV SCH ×5 (06:07→23:32)
[2017-05-20] MEDS: PCA shift volume MISC SCH ×2 (07:07→19:07)
[2017-05-20 08:00] VITALS: BP 143/84
--- NOTE | 2017-05-20 08:24 | General Progress Note ---
Progress Note Progress Note AVSS. Still c/o headache. Using DETENTION ATTENDANT much less with Toradol dosing. Abdomen soft, still mildly distended, healing nicely Urine 3500 Gastrostomy 90 BCIR ileo 190 WBC 7300 Hgb 12.7 K 3.3 Mg 1.5 Imp. Ileus Malnutrition, mild Spontaneous diuresis Plan: Continue TPN, NPO Continue ARIELA Padron May 20, 2017 08:24
[2017-05-20] MEDS: Dyna-Hex 2% Top Sol 8oz TOPIC SCH (08:29)
[2017-05-20] MEDS ORDERED: MAGNESIUM SULFATE IV SCH (09:30)
[2017-05-20] MEDS ORDERED: D5W IV SCH (09:30)
[2017-05-20] MEDS: Potassium Chloride 40 MEQ in D5 1/4NS 1000ml 1,000 ML IV SCH ×2 (09:30→22:20)
[2017-05-20] MEDS: PCA Morphine 1mg/ml 30 ML IV PRN (10:19)
[2017-05-20 12:00] VITALS: BP 139/82
[2017-05-20 16:00] VITALS: BP 136/68
[2017-05-20 20:00] VITALS: BP 145/81
[2017-05-20] MEDS: Fat Emulsion Iv 20% 240 ML in Tpn 1,680 ML IV SCH (21:17)
[2017-05-21 00:17] VITALS: BP 126/73
[2017-05-21] MEDS: Metoclopramide 10mg/2ml Inj IVP SCH ×4 (03:21→19:59)
[2017-05-21 04:38] VITALS: BP 142/80
[2017-05-21 05:27] LABS: ANION GAP 9 (5-15); CALCIUM 8.5 mg/dL (8.6-10.2); CARBON DIOXIDE 31 mEQ/L (20-30); CHLORIDE 100 mEQ/L (98-107); CREATININE 0.7 mg/dL (0.7-1.2); GLOMERULAR FILTRATION RATE > 60 mL/min (>60); HEMOLYSIS 8; MAGNESIUM 1.4 mg/dL (1.7-2.5); PHOSPHORUS 3.3 mg/dL (2.5-4.8); POTASSIUM 3.5 mEQ/L (3.4-4.9); SODIUM 140 mEQ/L (135-145)
[2017-05-21] MEDS: metroNIDAZOLE 500mg 100 ML IV SCH (05:37)
[2017-05-21] MEDS: Ampicillin/Sulbactam Sod 3 GM in NS 110 ML IV SCH (05:38)
[2017-05-21] MEDS: NovoLOG Insulin Flexpen SUBQ SCH ×4 (05:47→22:35)
[2017-05-21] MEDS: PCA shift volume MISC SCH (07:18)
[2017-05-21] MEDS ORDERED: Naloxone 0.4mg/ml Inj IVP PRN (08:22)
[2017-05-21 08:23] VITALS: BP 141/82
--- NOTE | 2017-05-21 08:34 | General Progress Note ---
Progress Note Progress Note AVSS Ambulating much better. Abdomen still distended and tympanitic, healing nicely Urine 2800 Gastrostomy 110 BCIR ileo 215 WBC 7300 Hgb 12.7 K up 3.5 P now wnl Mg rising but low 1.4 Imp. Persistent ileus Plan: d/c anne d/c antibiotics continue npo and TPN Mg bolus ARIELA DAWSON May 21, 2017 08:34
[2017-05-21] MEDS ORDERED: Morphine Sulfate 4mg/ml Inj SUBQ PRN (09:00)
[2017-05-21] MEDS ORDERED: DiphenhydrAMINE 50mg/ml Inj IVP PRN (09:00)
[2017-05-21] MEDS ORDERED: Rate Change PCA 1 Each MISC PRN (09:00)
[2017-05-21] MEDS ORDERED: Morphine Sulfate 2mg/ml Inj IVP PRN (09:00)
[2017-05-21] MEDS ORDERED: PCA Morphine 1mg/ml 30 ML IV PRN (09:00)
[2017-05-21] MEDS: Dyna-Hex 2% Top Sol 8oz TOPIC SCH (09:42)
[2017-05-21 16:04] VITALS: BP 145/79
[2017-05-21] MEDS ORDERED: PCA shift volume MISC SCH (19:00)
[2017-05-21] MEDS: Fat Emulsion Iv 20% 240 ML in Tpn 1,680 ML IV SCH (20:00)
[2017-05-21 20:46] VITALS: BP 137/85
[2017-05-22 00:20] VITALS: BP 142/77
[2017-05-22] MEDS: Potassium Chloride 40 MEQ in D5 1/4NS 1000ml 1,000 ML IV SCH (03:07)
[2017-05-22] MEDS: Metoclopramide 10mg/2ml Inj IVP SCH ×4 (03:07→20:02)
[2017-05-22 04:00] VITALS: BP 111/64
[2017-05-22] MEDS ORDERED: Potassium Chloride 40 MEQ in D5 1/4NS 1000ml 1,000 ML IV SCH (08:00)
[2017-05-22] MEDS: Dyna-Hex 2% Top Sol 8oz TOPIC SCH (08:31)
[2017-05-22] MEDS: NovoLOG Insulin Flexpen SUBQ SCH ×2 (08:32→17:49)
[2017-05-22 08:43] VITALS: BP 123/79
--- NOTE | 2017-05-22 09:04 | General Progress Note ---
Progress Note Progress Note Tmax 99.7 VSS Feels well. Ambulating and voiding well. Not needing any analgesics Abdomen soft, non-distended, healing nicely Urine 2950 Gastorstomy 0 BCIR ileo 240 Imp. Ileus resolved Plan: clear liquid diet + gastrostomy 3:3 protocol f/u labs in AM continue TPN for at least several more days ARIELA DAWSON May 22, 2017 09:04
[2017-05-22] MEDS ORDERED: LORazepam 1mg tab SL PRN ×2 (10:00→20:00)
[2017-05-22 12:29] VITALS: BP 123/68
[2017-05-22] MEDS ORDERED: NS Irrig 1000ml ONE (15:09)
[2017-05-22 16:00] VITALS: BP 123/68
[2017-05-22 20:00] VITALS: BP 121/77
[2017-05-22] MEDS: Fat Emulsion Iv 20% 240 ML in Tpn 1,680 ML IV SCH (20:09)
[2017-05-22] MEDS ORDERED: NovoLOG Insulin Flexpen SUBQ SCH (21:00)
[2017-05-23 00:51] VITALS: BP 115/77
[2017-05-23] MEDS: Metoclopramide 10mg/2ml Inj IVP SCH ×4 (03:00→20:08)
[2017-05-23 05:05] LABS: BASOPHILS % (AUTO) 0.5 % (0.0-2.0); EOSINOPHILS % (AUTO) 6.8 % (0.0-3.0); LYMPHOCYTES % (AUTO) 15.1 % (20.0-45.0); MEAN CORPUSCULAR HEMOGLOBIN 33.6 PG (27.0-31.0); MEAN CORPUSCULAR HGB CONC 36.6 G/DL (32.0-36.0); MEAN CORPUSCULAR VOLUME 92 FL (80-99); MEAN PLATELET VOLUME 7.8 FL (6.5-10.1); MONOCYTES % (AUTO) 8.7 % (1.0-10.0); NEUTROPHILS % (AUTO) 68.9 % (45.0-75.0); PLATELET COUNT 183 K/UL (150-450); RED BLOOD COUNT 4.16 M/UL (4.70-6.10); RED CELL DISTRIBUTION WIDTH 11.6 % (11.6-14.8); WHITE BLOOD COUNT 10.7 K/UL (4.8-10.8)
[2017-05-23 05:21] LABS: ALANINE AMINOTRANSFERASE 55 U/L (3-41); ALBUMIN/GLOBULIN RATIO 1.4 (1.0-2.7); ANION GAP 8 (5-15); ASPARTATE AMINO TRANSFERASE 43 U/L (5-40); CALCIUM 8.8 mg/dL (8.6-10.2); CARBON DIOXIDE 29 mEQ/L (20-30); CHLORIDE 100 mEQ/L (98-107); CREATININE 0.8 mg/dL (0.7-1.2); GLOMERULAR FILTRATION RATE > 60 mL/min (>60); HEMOLYSIS 13; MAGNESIUM 1.6 mg/dL (1.7-2.5); SODIUM 137 mEQ/L (135-145); TOTAL PROTEIN 5.4 g/dL (6.6-8.7)
[2017-05-23 08:00] VITALS: BP 138/75
[2017-05-23] MEDS: Dyna-Hex 2% Top Sol 8oz TOPIC SCH (08:59)
[2017-05-23] MEDS: NovoLOG Insulin Flexpen SUBQ SCH ×2 (09:00→21:00)
[2017-05-23 11:36] VITALS: BP 114/72
[2017-05-23 16:22] VITALS: BP 132/73
[2017-05-23] MEDS ORDERED: NS Irrig 1000ml ONE (17:53)
[2017-05-23 20:00] VITALS: BP 120/71
[2017-05-23] MEDS: Fat Emulsion Iv 20% 240 ML in Tpn 1,680 ML IV SCH (20:07)
--- NOTE | 2017-05-23 21:30 | Progress Note ---
DATE: 05/23/2017 SURGICAL PROGRESS NOTE Covering for Dr. Kevin Nettles. SUBJECTIVE: The patient is doing quite well after his pouch revision. Surgical sites are examined and they all appeared clean and healthy. He is tolerating a full-liquid diet and feels quite well. PLAN: Plan will be to change the diet to the BCIR solid food regimen tomorrow and continue TPN. Sergio Abernathy M.D. DR: ENA JOB#: [id number] CC:
[2017-05-24 00:08] VITALS: BP 111/69
[2017-05-24] MEDS: Metoclopramide 10mg/2ml Inj IVP SCH ×4 (03:00→20:28)
[2017-05-24 04:00] VITALS: BP 122/68
[2017-05-24 08:00] VITALS: BP 127/76
[2017-05-24] MEDS: Dyna-Hex 2% Top Sol 8oz TOPIC SCH (09:33)
[2017-05-24] MEDS: NovoLOG Insulin Flexpen SUBQ SCH ×2 (09:47→20:28)
[2017-05-24 12:48] VITALS: BP 131/77
[2017-05-24 16:46] VITALS: BP 118/71
[2017-05-24] MEDS: Fat Emulsion Iv 20% 240 ML in Tpn 1,680 ML IV SCH (20:27)
[2017-05-24 20:30] VITALS: BP 120/76
[2017-05-25] VITALS (7 sets, daily range): BP systolic 113–128; BP diastolic 67–73
--- NOTE | 2017-05-25 01:30 | Progress Note ---
DATE: 05/24/2017 SURGICAL PROGRESS NOTE SUBJECTIVE: The patient has had a peristomal hernia. His Owusu pouch with surgical revision of the valve and movement of the stoma to the opposite side of the abdomen. He is now approximately 8 days postoperative and doing well. He has tolerated a liquid diet with the G-tube unclamped one hour out of six and is now ready to start on a BCIR diet. This has been ordered. PLAN: The plan is to continue mobilizing and remove the G-tube when Dr. Nettles returns tomorrow. It is anticipated, he will be discharged before the end of the week. Sergio Abernathy M.D. DR: ENA JOB#: [id number] CC:
[2017-05-25] MEDS: Metoclopramide 10mg/2ml Inj IVP SCH ×3 (03:00→15:00)
[2017-05-25] MEDS: Dyna-Hex 2% Top Sol 8oz TOPIC SCH (08:45)
[2017-05-25] MEDS: NovoLOG Insulin Flexpen SUBQ SCH ×2 (08:49→20:57)
[2017-05-25] MEDS: Phytonadione 10 mg/mL 1ml amp SUBQ SCH (10:09)
--- NOTE | 2017-05-25 16:08 | General Progress Note ---
Progress Note Progress Note AVSS Doing well with BCIR low residue diet and today continuous plugging of gastrostomy Abdomen soft, healing well Urine 1260 BCIR ileo 890 Gastrostomy 245 Imp. Improving Plan: Will remove gastrostomy in AM labs in AM d/c TPN tomorrow if albumin up will start BCIR self-intubations in 48 hours if does well ARIELA DAWSON May 25, 2017 16:08
[2017-05-25] MEDS: Fat Emulsion Iv 20% 240 ML in Tpn 1,680 ML IV SCH (19:57)
[2017-05-25] MEDS ORDERED: Metoclopramide 10mg/2ml Inj IVP PRN (20:30)
[2017-05-26 04:00] VITALS: BP 127/72
[2017-05-26 05:38] LABS: BASOPHILS % (AUTO) 0.7 % (0.0-2.0); EOSINOPHILS % (AUTO) 6.8 % (0.0-3.0); LYMPHOCYTES % (AUTO) 14.8 % (20.0-45.0); MEAN CORPUSCULAR HEMOGLOBIN 32.8 PG (27.0-31.0); MEAN CORPUSCULAR HGB CONC 35.3 G/DL (32.0-36.0); MEAN CORPUSCULAR VOLUME 93 FL (80-99); MEAN PLATELET VOLUME 7.6 FL (6.5-10.1); MONOCYTES % (AUTO) 10.2 % (1.0-10.0); NEUTROPHILS % (AUTO) 67.6 % (45.0-75.0); PLATELET COUNT 190 K/UL (150-450); RED BLOOD COUNT 3.87 M/UL (4.70-6.10); RED CELL DISTRIBUTION WIDTH 11.5 % (11.6-14.8); WHITE BLOOD COUNT 8.9 K/UL (4.8-10.8)
[2017-05-26 05:58] LABS: ALANINE AMINOTRANSFERASE 49 U/L (3-41); ALBUMIN/GLOBULIN RATIO 1.4 (1.0-2.7); ANION GAP 9 (5-15); ASPARTATE AMINO TRANSFERASE 24 U/L (5-40); CALCIUM 8.7 mg/dL (8.6-10.2); CARBON DIOXIDE 28 mEQ/L (20-30); CHLORIDE 100 mEQ/L (98-107); CREATININE 0.8 mg/dL (0.7-1.2); GLOMERULAR FILTRATION RATE > 60 mL/min (>60); HEMOLYSIS 5; POTASSIUM 4.1 mEQ/L (3.4-4.9); SODIUM 137 mEQ/L (135-145); TOTAL PROTEIN 5.4 g/dL (6.6-8.7)
[2017-05-26 07:53] VITALS: BP 121/64
--- NOTE | 2017-05-26 08:23 | General Progress Note ---
Progress Note Progress Note AVSS Tolerating BCIR low residue diet and gastrostomy plugged. Abdomen soft, healing nicely Urine 1950 BCIR ileo 665 WBC 8900 Hgb 12.7 BMP - wnl Albumin still 3.2 Slight increase in LFTs enzymes due to ATPN Imp. Improving Plan: D/C TPN after current supply is finished Will remove gastrostomy IN AM begin RN supervised BCIR self-intubations ARIELA DAWSON May 26, 2017 08:23
[2017-05-26] MEDS: NovoLOG Insulin Flexpen SUBQ SCH (08:43)
[2017-05-26] MEDS: Dyna-Hex 2% Top Sol 8oz TOPIC SCH (08:51)
[2017-05-26 12:09] VITALS: BP 124/74
[2017-05-26] MEDS ORDERED: Metoclopramide 10mg/2ml Inj IVP PRN (15:00)
[2017-05-26 16:30] VITALS: BP 119/79
[2017-05-26 20:10] VITALS: BP 109/57
[2017-05-27] VITALS: BP 115/76
[2017-05-27 04:00] VITALS: BP 111/66
[2017-05-27 08:00] VITALS: BP 114/74
[2017-05-27] MEDS: Dyna-Hex 2% Top Sol 8oz TOPIC SCH (09:00)
--- NOTE | 2017-05-27 09:07 | General Progress Note ---
Progress Note Progress Note AVSS Doing well with BCIR diet. ABdomen soft. Paul removed midline + RLQ and steristrips applied BCIR ileo catheter removed - reinserts readily Urine 1150 BCIR ileo 1240 Imp. Improved PLan; RN supervised BCIR self-intubations q3h am to hs and prn; continue I&O ARIELA DAWSON May 27, 2017 09:07
[2017-05-27 12:00] VITALS: BP 110/62
[2017-05-27 16:00] VITALS: BP 117/75
[2017-05-27 20:00] VITALS: BP 112/63
[2017-05-27] MEDS ORDERED: Hyoscyamine 0.125mg tab ORAL PRN (23:00)
[2017-05-28 04:00] VITALS: BP 114/65
[2017-05-28 08:23] VITALS: BP 122/70
[2017-05-28] MEDS: Dyna-Hex 2% Top Sol 8oz TOPIC SCH (09:00)
[2017-05-28 11:51] VITALS: BP 117/63
--- NOTE | 2017-05-28 13:55 | General Progress Note ---
Progress Note Progress Note AVSS Doing well with intubation of his Owusu continent ileostomy with new stoma location in LLQ of abdomen. Eating well but last night fullness and gas pains - relieved with additional intubation Abdomen soft, moderate distention and tympanitic: patient intubated with 200cc output. Reexamination of abdomen reveals it less distended but still tympanitic. Patient advised to intubate again in 45-60minutes Urine 1625 BCIR ileo 1180/24 hojurs Imp. Improving Plan: continue RN supervised BCIR self-intubations q3h + prn continue I&O anticipate discharge in ARIELA SAMANIEGO May 28, 2017 13:55
[2017-05-28 16:09] VITALS: BP 111/73
[2017-05-28] MEDS ORDERED: Simethicone 80mg tab ORAL PRN (18:15)
[2017-05-28 20:17] VITALS: BP 123/77
[2017-05-29 00:18] VITALS: BP 125/65
[2017-05-29 04:00] VITALS: BP 128/75
[2017-05-29 08:00] VITALS: BP 123/77
--- NOTE | 2017-05-29 08:16 | General Progress Note ---
Progress Note Progress Note AVSS Feeling well and has learned intubation technique with LLQ stoma location Abdomen soft, flat, well healed Urine 1400 BCIR ileo 1450 Imp. doing well Plan: Discharge full supplies/limitations/instructions provided/discussed f/u office 06/02 + prn ARIELA DAWSON May 29, 2017 08:16
--- NOTE | 2017-06-03 14:30 | Discharge Summary ---
Discharge Summary Hospital Course Date of Admission May 15, 2017 at 09:02 Date of Discharge May 29, 2017 at 09:42 Admitting Diagnosis LUZ POUCH PARA STOMA HERNIA Reason for Hospitalization: elective surgery: pouch endoscopy followed by repair of parastomal hernia HPI Domingo Liu is a 66 year old male who was admitted on May 15, 2017 at 09:02 for Owusu Pouch Parastoma Hernia The patient is a 66-year-old male in good health with a parastomal hernia involving his Owusu continent ileostomy. The patient developed ulcerative colitis at age 26. At age 34 he underwent proctocolectomy with Jazmin ileostomy. In 2011 he underwent surgery to convert his malfunctioning ileostomy to a [place]u type of [place] pouch continent ileostomy. He has done very well since then, but in the past year has developed progressive bulging at the stoma. He was scheduled to undergo pouch endoscopy followed by repair of parastomal hernia. Procedures s/p 05/16 by Thien Higginbotham and Shahana Watts ( assistant editor) Laparotomy with complex revision of Owusu continent ileostomy including creation of new valve and relocation of stoma to the left lower quadrant; repair of right lower quadrant hernia; catheter gastrostomy. Hospital Course s/p pouch endoscopy 05/15 Owusu Pouch endoscopy revealed a partially slipped valve (valve dessusception) , in addition to the parastomal hernia. In view of this additional finding, the patient required laparotomy and revision of his Continent Ileostomy, as well as repair of the parastomal hernia. s/p surgery 05/16 NPO IVF Pain management with COMPOSITION FLOOR SETTER initially, then dc Incision clean, stoma pink careful I/O a/emetic prn developed ileus , persistent started on TPN 05/18 e/lytes replaced as needed Toradol added for pain management 05/21 Sarmiento dc 05/22 ileus resolved started on CL diet , monitor tolerance continue TPN for few additional days ambulate 05/26 dc TPN and dc GT 05/27 started RN supervised BCIR self intubation q 3 AM to HS and prn 05/27 evelyn removed, steri strips applied ambulated, pain controlled, able to self intubate , tolerated diet incision clean cleared for dc 05/29 and fup as outpatient with surgeon 06/02 FINAL DIAGNOSIS 1. 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 2. History of ulcerative colitis. 3. Status post multiple abdominal operations. 3.1. Proctocolectomy and Jazmin ileostomy in 1984. 3.2. Creation of Owusu continent ileostomy in 2011. 4. s/p 05/15 Owusu Continent Ileostomy pouch endoscopy 5. s/p 05/16 Laparotomy with complex revision of [place] continent ileostomy including creation of new valve and relocation of stoma to the left lower quadrant; repair of right lower quadrant hernia; catheter gastrostomy. 6. ileus- resolved 7. malnutrition Discharge Medications Continued Medications: Cetirizine Hcl* (Zyrtec*) 10 Mg Tablet 10 MG ORAL DAILY, #30 TAB 0 Refills Discharge Discharge Disposition Patient was discharged to Home (01) Discharge Diagnoses: Discharge Instructions Discharge Instructions Special Instructions I have been assigned to complete a D/C Summary on this account. I was not involved in the patient management Araseli Grossman NP ([place]) Jun 03, 2017 14:30
== END 2017-05-29 09:42 | disposition home or self-care (01) | DRG 327 ==
LOC: GAS 06:36 → 3E 09:02
PROC: 0DJD8ZZ Inspection of Lower Intestinal Tract, Via Natural or Artificial Opening Endoscopic (ICD-10-PCS; principal; 2017-05-15 08:06)
PROC: 0DBB0ZZ Excision of Ileum, Open Approach (ICD-10-PCS; 2017-05-16)
PROC: 0D1B0Z4 Bypass Ileum to Cutaneous, Open Approach (ICD-10-PCS; 2017-05-16)
PROC: 0WQF0ZZ Repair Abdominal Wall, Open Approach (ICD-10-PCS; 2017-05-16)
PROC: 0DH60UZ Insertion of Feeding Device into Stomach, Open Approach (ICD-10-PCS; 2017-05-16)
DX: K94.13 Enterostomy malfunction (principal); K56.7 Ileus, unspecified; E46 Unspecified protein-calorie malnutrition; K43.5 Parastomal hernia without obstruction or gangrene; Z68.20 Body mass index [BMI] 20.0-20.9, adult
CPT/HCPCS: 36415; 36569; 76937; 80048; 80053; 81003; 82248; 82962; 83735; 84100; 84478; 85025; 85610; 85730; 86850; 86900; 86901; 87081; 94003; 94150; 94760; A4246; J1815; J2250; J2405; J2710; J2765